=== PATIENT | male | born 1950 | race Caucasian/White ===

== ENCOUNTER 2023-07-17 15:32 | Emergency (ER) | payer MEDICARE ==
[2023-07-17] MEDS ORDERED: Sodium Chloride 0.9% 100 ML IV SCH (16:45)
[2023-07-17] MEDS: Sodium Chloride 0.9% 10 ML Syringe FLUSH PRN (17:00)
[2023-07-17 17:02] LABS: BASOPHILS ABSOLUTE AUTO 0.1 K/mm3 (0.0-0.2); BASOPHILS PERCENT AUTO 0.6 % (0.0-1.0); EOSINOPHILS ABSOLUTE AUTO 0.1 K/mm3 (0.0-0.4); EOSINOPHILS PERCENT AUTO 0.9 % (0.0-6.0); HEMATOCRIT 45.8 % (42.0-52.0); HEMOGLOBIN 15.1 gm/dl (14.0-18.0); IMMATURE GRAN ABSOLUTE AUTO 0.13 K/mm3 (0.00-0.05); LYMPHOCYTES ABSOLUTE AUTO 3.5 K/mm3 (1.0-4.8); LYMPHOCYTES PERCENT AUTO 26.1 % (24.0-44.0); MEAN CORPUSCULAR HEMOGLOBIN 27.7 pg (28.0-32.0); MEAN CORPUSCULAR VOLUME 83.9 fl (83.0-99.0); MEAN PLATELET VOLUME 11.3 fl (9.4-12.4); MONOCYTES ABSOLUTE AUTO 0.9 K/mm3 (0.0-0.8); MONOCYTES PERCENT AUTO 6.7 % (0.0-8.0); NEUTROPHILS ABSOLUTE AUTO 8.7 K/mm3 (1.8-7.7); NEUTROPHILS PERCENT AUTO 64.7 % (41.0-71.0); PLATELET COUNT,PLT 198 K/mm3 (150-400); RED BLOOD CELL COUNT 5.46 M/mm3 (4.52-5.90); WHITE BLOOD CELL COUNT,WBC 13.47 K/mm3 (3.9-11.3)
[2023-07-17 17:18] LABS: A/G RATIO 1.1 (1-2); ALBUMIN 3.2 g/dl (3.4-5.0); ANION GAP 13.8 (5-15); BUN/CREATININE RATIO 21.8 (14-18); C-REACTIVE PROTEIN 0.6 mg/dL (<0.30); CREATININE 1.7 mg/dL (0.7-1.3); EST CRCL DRUG DOSING (CG) 39.36 mL/min; MAGNESIUM 1.5 mg/dL (1.8-2.4); PROTEIN TOTAL,TP 6.2 g/dl (6.4-8.2)
[2023-07-17 17:24] LABS: POTASSIUM,K 3.8 mEq/L (3.5-5.1)
[2023-07-17 17:54] LABS: HEMOGLOBIN A1C 11.6 %
[2023-07-17] MEDS: Iopamidol 755 Mg/ML 100 ML Bottle IVPUSH ONE (18:42)
[2023-07-17] MEDS: Insulin Lispro 100 Unit/ML 3 ML KwikPen SUBCUT ONE (19:13)
[2023-07-17] MEDS ORDERED: Sodium Chloride 0.9% 1,000 ML IV ONE (19:18)
[2023-07-17] MEDS: Sodium Chloride 0.9% 500 ML IV ONE (19:36)
[2023-07-17 20:24] LABS: APPEARANCE,URINE CLEAR (Clear); BILIRUBIN,URINE NEGATIVE (Negative); COLOR,URINE LIGHT YELLOW (Yellow); GLUCOSE,URINE 2+ (Negative); KETONES,URINE NEGATIVE (Negative); LEUKOCYTE ESTERASE,URINE NEGATIVE (Negative); NITRITE,URINE NEGATIVE (Negative); OCCULT BLOOD,URINE NEGATIVE (Negative); PROTEIN,URINE NEGATIVE (Negative); UROBILINOGEN,URINE 0.2 (0.2-1.0)
[2023-07-17] MEDS: Albuterol/Ipratropium 3.0-0.5 MG/3 ML Neb Soln NEB SCH (20:28)
[2023-07-17 20:47] LABS: BACTERIA,URINE FEW /hpf (FEW); MUCUS,URINE FEW /hpf (FEW); RBC,URINE 0-5 /hpf (0-5); SQUAMOUS EPITHELIAL CELLS,UR 0-5 /hpf (0-5); WBC,URINE 0-5 /hpf (0-5)
[2023-07-17] MEDS ORDERED: Acetaminophen/HYDROcodone 325-5 MG Tab PO ONE (21:04)
== END 2023-07-17 21:30 | disposition home or self-care (01) ==
LOC: JD.ED 15:32
DX: M16.11 Unilateral primary osteoarthritis, right hip (principal); R73.9 Hyperglycemia, unspecified; E04.1 Nontoxic single thyroid nodule; R06.2 Wheezing; F17.210 Nicotine dependence, cigarettes, uncomplicated; Z79.899 Other long term (current) drug therapy
CPT/HCPCS: 36415; 70496; 70498; 71250; 73502; 80053; 81001; 82947; 83036; 83735; 85025; 86140; 94640; 96360; 99285; J1815; J3490; J7030; Q9967; J7620-GY

== ENCOUNTER 2023-09-06 10:14 | Inpatient (IN) | payer MEDICARE ==
[2023-09-06 10:52] LABS: BASE EXCESS ARTERIAL -0.4 (-2-2.0); BICARBONATE,ARTERIAL 25.9 meq/L (22.0-26.0); O2 SATURATION ARTERIAL 91.6 % (96.0-97.0); PCO2 ARTERIAL 50.7 mmHg (35.0-45.0)
[2023-09-06] MEDS: Albuterol/Ipratropium 3.0-0.5 MG/3 ML Neb Soln NEB ONE (11:05)
[2023-09-06 11:12] LABS: BASOPHILS ABSOLUTE AUTO 0.1 K/mm3 (0.0-0.2); BASOPHILS PERCENT AUTO 0.2 % (0.0-1.0); EOSINOPHILS PERCENT AUTO 0.1 % (0.0-6.0); HEMATOCRIT 47.4 % (42.0-52.0); HEMOGLOBIN 15.8 gm/dl (14.0-18.0); IMMATURE GRAN ABSOLUTE AUTO 0.58 K/mm3 (0.00-0.05); IMMATURE GRAN PERCENT AUTO 2.1 % (0.0-0.4); LYMPHOCYTES ABSOLUTE AUTO 1.4 K/mm3 (1.0-4.8); MEAN CORPUSCULAR HGB CONC 33.3 g/dl (32.0-36.0); MEAN PLATELET VOLUME 11.6 fl (9.4-12.4); MONOCYTES ABSOLUTE AUTO 1.5 K/mm3 (0.0-0.8); MONOCYTES PERCENT AUTO 5.3 % (0.0-8.0); NEUTROPHILS ABSOLUTE AUTO 24.5 K/mm3 (1.8-7.7); NEUTROPHILS PERCENT AUTO 87.3 % (41.0-71.0); PLATELET COUNT,PLT 163 K/mm3 (150-400); RED BLOOD CELL COUNT 5.64 M/mm3 (4.52-5.90); WHITE BLOOD CELL COUNT,WBC 28.01 K/mm3 (3.9-11.3)
[2023-09-06] MEDS: Sodium Chloride 0.9% 10 ML Syringe FLUSH PRN (11:12)
[2023-09-06 11:35] LABS: A/G RATIO 1.2 (1-2); ALBUMIN 3.3 g/dl (3.4-5.0); ANION GAP 14.5 (5-15); BILIRUBIN TOTAL 0.9 mg/dL (0.2-1.0); BUN/CREATININE RATIO 19.3 (14-18); C-REACTIVE PROTEIN 0.32 mg/dL (<0.30); CREATININE 4.3 mg/dL (0.7-1.3); EST CRCL DRUG DOSING (CG) 14.58 mL/min; PROTEIN TOTAL,TP 6.1 g/dl (6.4-8.2)
[2023-09-06 11:38] LABS: POTASSIUM,K 4.5 mEq/L (3.5-5.1)
[2023-09-06 11:46] LABS: SLIDE REVIEW ABNORMAL SMEAR
[2023-09-06] MEDS: Sodium Chloride 0.9% 1,000 ML IV STA ×2 (12:03→13:55)
[2023-09-06] MEDS ORDERED: Sodium Chloride 0.9% 500 ML IV STA (12:19)
[2023-09-06 12:30] LABS: HEMOGLOBIN A1C 11.3 %
[2023-09-06 12:39] LABS: LACTIC ACID 2.2 mmol/L (0.4-2.0)
[2023-09-06 13:58] LABS: APPEARANCE,URINE CLEAR (Clear); BILIRUBIN,URINE NEGATIVE (Negative); COLOR,URINE YELLOW (Yellow); GLUCOSE,URINE 2+ (Negative); KETONES,URINE NEGATIVE (Negative); LEUKOCYTE ESTERASE,URINE NEGATIVE (Negative); NITRITE,URINE NEGATIVE (Negative); OCCULT BLOOD,URINE 2+ (Negative); PH,URINE 5.5 (5.0-8.0); PROTEIN,URINE NEGATIVE (Negative); UROBILINOGEN,URINE 0.2 (0.2-1.0)
[2023-09-06] MEDS: Piperacillin/Tazobactam 4.5 GM in Sodium Chloride 0.9% 100 ML IV ONE (13:58)
[2023-09-06 14:14] LABS: BACTERIA,URINE FEW /hpf (FEW); MUCUS,URINE NOT SEEN /hpf (FEW); RBC,URINE 40-50 /hpf (0-5); SQUAMOUS EPITHELIAL CELLS,UR 0-5 /hpf (0-5); WBC,URINE 0-5 /hpf (0-5)
[2023-09-06 14:15] LABS: ANION GAP 12.2 (5-15); CALCIUM 8.9 mg/dL (8.5-10.1); CREATININE 4.1 mg/dL (0.7-1.3); EST CRCL DRUG DOSING (CG) 15.29 mL/min; POTASSIUM,K 4.2 mEq/L (3.5-5.1)
[2023-09-06] MEDS ORDERED: Polyethylene Glycol 3350 Powder 17 GM Packet PO PRN (14:29)
[2023-09-06] MEDS ORDERED: Albuterol/Ipratropium 3.0-0.5 MG/3 ML Neb Soln NEB PRN (14:29)
[2023-09-06] MEDS ORDERED: Docusate Sodium 100 MG Cap PO PRN (14:29)
[2023-09-06 15:27] LABS: BENZODIAZEPINES SCREEN,URINE PRESUMPTIVE POSITIVE (CUTOFF=150); OXYCODONE SCREEN,URINE PRESUMPTIVE POSITIVE (CUT0FF=100)
[2023-09-06 15:28] LABS: AMPHETAMINES SCREEN, URINE NEGATIVE (CUTOFF=500); BARBITURATE SCREEN,URINE NEGATIVE (CUTOFF=200); BUPRENORPHINE SCREEN,URINE NEGATIVE (CUTOFF=10); METHADONE SCREEN, URINE NEGATIVE (CUT0FF=200); METHAMPHETAMINES SCREEN, URINE NEGATIVE (CUTOFF=500); THC SCREEN,URINE 20 NG/ML NEGATIVE (CUTOFF=50)
[2023-09-06] MEDS: Calcium Carbonate 500 MG Tab.Chew PO ONE (15:57)
[2023-09-06] MEDS: Heparin Sodium 5,000 Units/ML Vial SUBCUT SCH (15:57)
[2023-09-06] MEDS: Nicotine 21 MG/24 Hr Patch TRDERM SCH (15:57)
[2023-09-06] MEDS: Sodium Chloride 0.9% 1,000 ML IV SCH (16:16)
[2023-09-06] MEDS ORDERED: Insulin Lispro 100 Unit/ML 3 ML KwikPen SUBCUT SCH (17:30)
[2023-09-06] MEDS: Insulin Lispro 100 Unit/ML 3 ML KwikPen SUBCUT SCH (17:33)
[2023-09-06] MEDS: Pantoprazole 40 MG Tab.CR PO SCH (17:54)
[2023-09-06] MEDS: Calcium Carbonate 500 MG Tab.Chew PO PRN (17:54)
[2023-09-06] MEDS: Acetaminophen 325 MG Tab PO PRN (20:06)
[2023-09-06] MEDS: Fluticasone NASAL Spray 16 GM Bottle NAS SCH (22:46)
[2023-09-07] MEDS: Piperacillin/Tazobactam 4.5 GM in Sodium Chloride 0.9% 100 ML IV SCH ×2 (02:28→10:56)
[2023-09-07] MEDS: Sodium Chloride 0.9% 500 ML IV ONE (03:14)
[2023-09-07 05:48] LABS: BASOPHILS ABSOLUTE AUTO 0.1 K/mm3 (0.0-0.2); BASOPHILS PERCENT AUTO 0.3 % (0.0-1.0); EOSINOPHILS ABSOLUTE AUTO 0.1 K/mm3 (0.0-0.4); EOSINOPHILS PERCENT AUTO 0.5 % (0.0-6.0); HEMATOCRIT 44.1 % (42.0-52.0); HEMOGLOBIN 14.6 gm/dl (14.0-18.0); IMMATURE GRAN PERCENT AUTO 2.2 % (0.0-0.4); LYMPHOCYTES ABSOLUTE AUTO 2.3 K/mm3 (1.0-4.8); LYMPHOCYTES PERCENT AUTO 10.2 % (24.0-44.0); MEAN CORPUSCULAR HEMOGLOBIN 27.7 pg (28.0-32.0); MEAN CORPUSCULAR HGB CONC 33.1 g/dl (32.0-36.0); MEAN CORPUSCULAR VOLUME 83.7 fl (83.0-99.0); MEAN PLATELET VOLUME 11.4 fl (9.4-12.4); MONOCYTES ABSOLUTE AUTO 1.2 K/mm3 (0.0-0.8); MONOCYTES PERCENT AUTO 5.1 % (0.0-8.0); NEUTROPHILS ABSOLUTE AUTO 18.4 K/mm3 (1.8-7.7); NEUTROPHILS PERCENT AUTO 81.7 % (41.0-71.0); PLATELET COUNT,PLT 124 K/mm3 (150-400); RED BLOOD CELL COUNT 5.27 M/mm3 (4.52-5.90); WHITE BLOOD CELL COUNT,WBC 22.59 K/mm3 (3.9-11.3)
[2023-09-07 05:50] LABS: A/G RATIO 1.1 (1-2); ALBUMIN 2.8 g/dl (3.4-5.0); ANION GAP 13.7 (5-15); BILIRUBIN TOTAL 0.9 mg/dL (0.2-1.0); BUN/CREATININE RATIO 26.4 (14-18); C-REACTIVE PROTEIN 0.32 mg/dL (<0.30); CALCIUM 8.7 mg/dL (8.5-10.1); EST CRCL DRUG DOSING (CG) 25.92 mL/min; MAGNESIUM 1.7 mg/dL (1.8-2.4); POTASSIUM,K 3.7 mEq/L (3.5-5.1); PROTEIN TOTAL,TP 5.4 g/dl (6.4-8.2)
[2023-09-07 06:07] LABS: CREATININE 2.5 mg/dL (0.7-1.3)
[2023-09-07] MEDS: Insulin Glargine,Human Rec. Analog 100 Units/ML 3 ML Pen SUBCUT SCH ×2 (08:37→08:40)
[2023-09-07] MEDS: Clopidogrel 75 MG Tab PO SCH (08:38)
[2023-09-07] MEDS: methylPREDNISolone Sodium Succinate 125 MG/2 ML SDV IVPUSH ONE (08:38)
[2023-09-07] MEDS: Albuterol/Ipratropium 3.0-0.5 MG/3 ML Neb Soln NEB SCH (08:43)
[2023-09-07] MEDS ORDERED: Insulin Glargine,Human Rec. Analog 100 Units/ML 3 ML Pen SUBCUT SCH (09:00)
[2023-09-07] MEDS ORDERED: Citalopram 20 MG Tab PO SCH (09:00)
[2023-09-07] MEDS: Magnesium Sulfate/Water 2 GM in Premix Bag 1 BAG IV ONE (10:51)
[2023-09-07] MEDS: oxyCODONE 5 MG Tab PO PRN (11:18)
[2023-09-07] MEDS: Citalopram 20 MG Tab PO SCH (13:30)
[2023-09-07] MEDS ORDERED: Insulin Glargine,Human Rec. Analog 100 Units/ML 3 ML Pen SUBCUT ONE (14:33)
[2023-09-08] MEDS: Ondansetron 4 MG/2 ML SDV IV PRN (05:16)
[2023-09-08 05:40] LABS: ALBUMIN 2.8 g/dl (3.4-5.0); ANION GAP 11.7 (5-15); BUN/CREATININE RATIO 29.3 (14-18); C-REACTIVE PROTEIN 0.38 mg/dL (<0.30); CALCIUM 9.4 mg/dL (8.5-10.1); CREATININE 1.5 mg/dL (0.7-1.3); EST CRCL DRUG DOSING (CG) 43.21 mL/min; MAGNESIUM 1.7 mg/dL (1.8-2.4); POTASSIUM,K 3.7 mEq/L (3.5-5.1); PROTEIN TOTAL,TP 5.5 g/dl (6.4-8.2)
[2023-09-08 05:47] LABS: BASOPHILS PERCENT AUTO 0.2 % (0.0-1.0); EOSINOPHILS PERCENT AUTO 0.2 % (0.0-6.0); HEMATOCRIT 44.4 % (42.0-52.0); HEMOGLOBIN 14.8 gm/dl (14.0-18.0); IMMATURE GRAN ABSOLUTE AUTO 0.31 K/mm3 (0.00-0.05); IMMATURE GRAN PERCENT AUTO 1.6 % (0.0-0.4); LYMPHOCYTES ABSOLUTE AUTO 1.5 K/mm3 (1.0-4.8); LYMPHOCYTES PERCENT AUTO 7.9 % (24.0-44.0); MEAN CORPUSCULAR HEMOGLOBIN 27.3 pg (28.0-32.0); MEAN CORPUSCULAR HGB CONC 33.3 g/dl (32.0-36.0); MEAN CORPUSCULAR VOLUME 81.9 fl (83.0-99.0); MEAN PLATELET VOLUME 12.2 fl (9.4-12.4); MONOCYTES ABSOLUTE AUTO 0.9 K/mm3 (0.0-0.8); MONOCYTES PERCENT AUTO 4.9 % (0.0-8.0); NEUTROPHILS ABSOLUTE AUTO 16.1 K/mm3 (1.8-7.7); NEUTROPHILS PERCENT AUTO 85.2 % (41.0-71.0); PLATELET COUNT,PLT 108 K/mm3 (150-400); RED BLOOD CELL COUNT 5.42 M/mm3 (4.52-5.90); WHITE BLOOD CELL COUNT,WBC 18.91 K/mm3 (3.9-11.3)
[2023-09-08] MEDS: predniSONE 20 MG Tab PO ONE (08:58)
[2023-09-08] MEDS: amLODIPine 5 MG Tab PO SCH (08:58)
[2023-09-08] MEDS: Magnesium Sulfate/Water 2 GM in Premix Bag 1 BAG IV ONE (08:59)
[2023-09-08] MEDS: Hyaluronidase, Human Recomb. 150 Unit/ML Vial SUBCUT ONE (09:49)
[2023-09-08] MEDS: Pregabalin 25 MG Cap PO SCH (10:36)
[2023-09-08] MEDS ORDERED: Pregabalin 25 MG Cap PO SCH (21:00)
[2023-09-09] MEDS: predniSONE 20 MG Tab PO SCH (06:13)
[2023-09-09 06:14] LABS: BASOPHILS PERCENT AUTO 0.2 % (0.0-1.0); EOSINOPHILS ABSOLUTE AUTO 0.1 K/mm3 (0.0-0.4); EOSINOPHILS PERCENT AUTO 0.3 % (0.0-6.0); HEMATOCRIT 45.3 % (42.0-52.0); HEMOGLOBIN 14.9 gm/dl (14.0-18.0); IMMATURE GRAN ABSOLUTE AUTO 0.38 K/mm3 (0.00-0.05); IMMATURE GRAN PERCENT AUTO 2.6 % (0.0-0.4); LYMPHOCYTES ABSOLUTE AUTO 2.2 K/mm3 (1.0-4.8); LYMPHOCYTES PERCENT AUTO 15.3 % (24.0-44.0); MEAN CORPUSCULAR HEMOGLOBIN 27.6 pg (28.0-32.0); MEAN CORPUSCULAR HGB CONC 32.9 g/dl (32.0-36.0); MEAN PLATELET VOLUME 12.2 fl (9.4-12.4); MONOCYTES ABSOLUTE AUTO 0.9 K/mm3 (0.0-0.8); NEUTROPHILS PERCENT AUTO 75.6 % (41.0-71.0); PLATELET COUNT,PLT 100 K/mm3 (150-400); RED BLOOD CELL COUNT 5.39 M/mm3 (4.52-5.90); WHITE BLOOD CELL COUNT,WBC 14.59 K/mm3 (3.9-11.3)
[2023-09-09 06:29] LABS: ALBUMIN 2.9 g/dl (3.4-5.0); ANION GAP 13.1 (5-15); BILIRUBIN TOTAL 0.6 mg/dL (0.2-1.0); BUN/CREATININE RATIO 26.4 (14-18); C-REACTIVE PROTEIN 0.32 mg/dL (<0.30); CALCIUM 9.4 mg/dL (8.5-10.1); CREATININE 1.4 mg/dL (0.7-1.3); EST CRCL DRUG DOSING (CG) 46.29 mL/min; MAGNESIUM 1.9 mg/dL (1.8-2.4); PROTEIN TOTAL,TP 5.8 g/dl (6.4-8.2)
[2023-09-09 06:31] LABS: POTASSIUM,K 4.1 mEq/L (3.5-5.1)
[2023-09-09] MEDS: Magnesium Oxide 400 MG Tab PO SCH (08:37)
[2023-09-09] MEDS: Insulin Glargine,Human Rec. Analog 100 Units/ML 3 ML Pen SUBCUT SCH (08:39)
== END 2023-09-09 13:00 | disposition home or self-care (01) | DRG 682 ==
LOC: JD.ED 10:14 → JD.ICU 14:26
PROVIDERS: ADMIT Internal Medicine; ATTEND Internal Medicine
DX: N17.9 Acute kidney failure, unspecified (principal); G93.41 Metabolic encephalopathy; J44.9 Chronic obstructive pulmonary disease, unspecified; F17.210 Nicotine dependence, cigarettes, uncomplicated; J96.01 Acute respiratory failure with hypoxia; E87.20 Acidosis, unspecified; J44.1 Chronic obstructive pulmonary disease with (acute) exacerbation; Z79.899 Other long term (current) drug therapy; Z79.84 Long term (current) use of oral hypoglycemic drugs; Z79.02 Long term (current) use of antithrombotics/antiplatelets; F11.20 Opioid dependence, uncomplicated; Z66 Do not resuscitate; E11.65 Type 2 diabetes mellitus with hyperglycemia; F41.9 Anxiety disorder, unspecified; F32.A Depression, unspecified; G47.33 Obstructive sleep apnea (adult) (pediatric); E86.0 Dehydration; R79.89 Other specified abnormal findings of blood chemistry; Z96.89 Presence of other specified functional implants; F17.200 Nicotine dependence, unspecified, uncomplicated; E83.42 Hypomagnesemia; I10 Essential (primary) hypertension; I25.2 Old myocardial infarction; Z95.1 Presence of aortocoronary bypass graft; Z79.52 Long term (current) use of systemic steroids; Z90.49 Acquired absence of other specified parts of digestive tract
CPT/HCPCS: 36415; 36600; 70450; 71046; 72131; 73502 ×2; 80048; 80053; 80306; 81001; 82570; 82803; 83036; 83605; 83880; 84145; 84300; 84439; 84443; 84484 ×2; 85025; 86140; 87040 ×2; 93005; 94640; 96361; 96365; 99285; J2543; J3490 ×2; J7030 ×2; 76775; 80307; 82947; 83735; 84100; 93010; 93976; 93976-26; 94667; 94668; 94761; 97161-GP; A9270-GY; J1644; J1815; J1815-GY; J2405; J2919; J3475; J7512; J7620-GY

== ENCOUNTER 2023-09-29 11:04 | Emergency (ER) | payer MEDICARE ==
[2023-09-29] MEDS: HYDROmorphone 1 MG/ML Syringe IM ONE (11:55)
== END 2023-09-29 12:07 | disposition home or self-care (01) ==
LOC: JD.ED 11:04
DX: M25.551 Pain in right hip (principal); M54.41 Lumbago with sciatica, right side; G89.29 Other chronic pain; I25.2 Old myocardial infarction; J44.9 Chronic obstructive pulmonary disease, unspecified; E11.9 Type 2 diabetes mellitus without complications; Z95.1 Presence of aortocoronary bypass graft; Z79.02 Long term (current) use of antithrombotics/antiplatelets; Z79.4 Long term (current) use of insulin; Z79.899 Other long term (current) drug therapy
CPT/HCPCS: 96372; 99283; J1170

== ENCOUNTER 2024-02-11 10:40 | Emergency (ER) | payer MEDICARE ==
[2024-02-11 12:52] LABS: BASOPHILS PERCENT AUTO 0.2 % (0.0-1.0); EOSINOPHILS ABSOLUTE AUTO 0.2 K/mm3 (0.0-0.4); EOSINOPHILS PERCENT AUTO 0.9 % (0.0-6.0); HEMATOCRIT 45.3 % (42.0-52.0); HEMOGLOBIN 14.5 gm/dl (14.0-18.0); IMMATURE GRAN ABSOLUTE AUTO 0.14 K/mm3 (0.00-0.05); IMMATURE GRAN PERCENT AUTO 0.8 % (0.0-0.4); LYMPHOCYTES ABSOLUTE AUTO 2.3 K/mm3 (1.0-4.8); LYMPHOCYTES PERCENT AUTO 13.4 % (24.0-44.0); MEAN CORPUSCULAR HEMOGLOBIN 27.1 pg (28.0-32.0); MEAN CORPUSCULAR VOLUME 84.5 fl (83.0-99.0); MEAN PLATELET VOLUME 10.8 fl (9.4-12.4); MONOCYTES ABSOLUTE AUTO 0.9 K/mm3 (0.0-0.8); MONOCYTES PERCENT AUTO 5.4 % (0.0-8.0); NEUTROPHILS ABSOLUTE AUTO 13.5 K/mm3 (1.8-7.7); NEUTROPHILS PERCENT AUTO 79.3 % (41.0-71.0); PLATELET COUNT,PLT 155 K/mm3 (150-400); RED BLOOD CELL COUNT 5.36 M/mm3 (4.52-5.90)
[2024-02-11 13:21] LABS: LACTIC ACID 1.2 mmol/L (0.4-2.0)
[2024-02-11 13:27] LABS: ALBUMIN 2.9 g/dl (3.4-5.0); ANION GAP 12.2 (5-15); BILIRUBIN TOTAL 1.1 mg/dL (0.2-1.0); C-REACTIVE PROTEIN 1.73 mg/dL (<0.30); CALCIUM 9.4 mg/dL (8.5-10.1); EST CRCL DRUG DOSING (CG) 65.9 mL/min; POTASSIUM,K 3.2 mEq/L (3.5-5.1); PROTEIN TOTAL,TP 5.8 g/dl (6.4-8.2)
[2024-02-11] MEDS: cefTRIAXone 2 GM, Lidocaine 1% 4.2 ML IM ONE (14:21)
[2024-02-11] MEDS: Potassium Chloride 20 MEQ Tab.ER PO ONE (14:23)
[2024-02-11] MEDS: oxyCODONE 5 MG Tab PO ONE (14:23)
[2024-02-11] MEDS: Furosemide 20 MG Tab PO ONE (14:23)
== END 2024-02-11 16:15 | disposition home or self-care (01) ==
LOC: JD.ED 10:40
DX: L03.116 Cellulitis of left lower limb (principal); I50.9 Heart failure, unspecified; E11.69 Type 2 diabetes mellitus with other specified complication; I25.2 Old myocardial infarction; J44.9 Chronic obstructive pulmonary disease, unspecified; K21.9 Gastro-esophageal reflux disease without esophagitis; F17.210 Nicotine dependence, cigarettes, uncomplicated; Z90.49 Acquired absence of other specified parts of digestive tract; Z79.51 Long term (current) use of inhaled steroids; Z79.4 Long term (current) use of insulin; Z79.52 Long term (current) use of systemic steroids; Z79.899 Other long term (current) drug therapy
CPT/HCPCS: 36415; 73630; 80053; 83605; 83880; 85025; 86140; 93971; 96372; 99285; A9270; J0696; J3490

== ENCOUNTER 2024-02-14 10:59 | Inpatient (IN) | payer MEDICARE, MEDICAID ==
[2024-02-14 11:53] LABS: BASOPHILS ABSOLUTE AUTO 0.1 K/mm3 (0.0-0.2); BASOPHILS PERCENT AUTO 0.3 % (0.0-1.0); HEMOGLOBIN 15.7 gm/dl (14.0-18.0); IMMATURE GRAN PERCENT AUTO 1.4 % (0.0-0.4); LYMPHOCYTES ABSOLUTE AUTO 0.6 K/mm3 (1.0-4.8); LYMPHOCYTES PERCENT AUTO 2.9 % (24.0-44.0); MEAN CORPUSCULAR HEMOGLOBIN 27.4 pg (28.0-32.0); MEAN CORPUSCULAR HGB CONC 32.7 g/dl (32.0-36.0); MEAN CORPUSCULAR VOLUME 83.6 fl (83.0-99.0); MEAN PLATELET VOLUME 10.9 fl (9.4-12.4); MONOCYTES ABSOLUTE AUTO 0.5 K/mm3 (0.0-0.8); MONOCYTES PERCENT AUTO 2.3 % (0.0-8.0); NEUTROPHILS ABSOLUTE AUTO 19.2 K/mm3 (1.8-7.7); NEUTROPHILS PERCENT AUTO 93.1 % (41.0-71.0); PLATELET COUNT,PLT 190 K/mm3 (150-400); RED BLOOD CELL COUNT 5.74 M/mm3 (4.52-5.90); WHITE BLOOD CELL COUNT,WBC 20.69 K/mm3 (3.9-11.3)
[2024-02-14] MEDS ORDERED: Sodium Chloride 0.9% 10 ML Syringe FLUSH PRN (11:58)
[2024-02-14] MEDS: Piperacillin/Tazobactam 4.5 GM in Sodium Chloride 0.9% 100 ML IV STA (12:13)
[2024-02-14 12:17] LABS: PROTHROMBIN TIME 10.6 SECONDS (9.7-12.0)
[2024-02-14 12:22] LABS: SLIDE REVIEW ABNORMAL SMEAR
[2024-02-14 12:23] LABS: LACTIC ACID 1.6 mmol/L (0.4-2.0)
[2024-02-14 12:38] LABS: A/G RATIO 0.8 (1-2); ANION GAP 16.9 (5-15); BILIRUBIN TOTAL 1.1 mg/dL (0.2-1.0); BUN/CREATININE RATIO 17.5 (14-18); CREATININE 1.6 mg/dL (0.7-1.3); EST CRCL DRUG DOSING (CG) 41.19 mL/min; POTASSIUM,K 3.9 mEq/L (3.5-5.1); PROTEIN TOTAL,TP 6.8 g/dl (6.4-8.2)
[2024-02-14] MEDS: Albuterol/Ipratropium 3.0-0.5 MG/3 ML Neb Soln NEB ONE (13:04)
[2024-02-14] MEDS: Sodium Chloride 0.9% 2,000 ML IV ONE (13:17)
[2024-02-14] MEDS: oxyCODONE 5 MG Tab PO ONE (13:18)
[2024-02-14 14:03] LABS: APPEARANCE,URINE CLEAR (Clear); BILIRUBIN,URINE 1+ (Negative); COLOR,URINE YELLOW (Yellow); GLUCOSE,URINE 2+ (Negative); KETONES,URINE TRACE (Negative); LEUKOCYTE ESTERASE,URINE NEGATIVE (Negative); NITRITE,URINE NEGATIVE (Negative); OCCULT BLOOD,URINE NEGATIVE (Negative); PROTEIN,URINE TRACE (Negative); UROBILINOGEN,URINE 0.2 (0.2-1.0)
[2024-02-14 14:08] LABS: BACTERIA,URINE RARE /hpf (FEW); EPITHELIAL CELLS,URINE 0-5 /hpf (0-5); MUCUS,URINE FEW /hpf (FEW); RBC,URINE 0-5 /hpf (0-5); WBC,URINE 0-5 /hpf (0-5)
[2024-02-14] MEDS ORDERED: Polyethylene Glycol 3350 Powder 17 GM Packet PO PRN (14:19)
[2024-02-14] MEDS ORDERED: oxyCODONE 5 MG Tab PO PRN (14:19)
[2024-02-14] MEDS ORDERED: Docusate Sodium 100 MG Cap PO PRN (14:19)
[2024-02-14] MEDS ORDERED: Albuterol/Ipratropium 3.0-0.5 MG/3 ML Neb Soln NEB PRN (14:19)
[2024-02-14] MEDS ORDERED: Ondansetron 4 MG/2 ML SDV IV PRN (14:19)
[2024-02-14] MEDS ORDERED: Albuterol 0.083% 2.5 MG/3 ML Neb Soln NEB PRN (14:19)
[2024-02-14] MEDS ORDERED: OXYCODONE MYRISTATE 18 MG PO SCH (14:30)
[2024-02-14 14:56] LABS: HEMOGLOBIN A1C 10.4 %
[2024-02-14] MEDS: Enoxaparin 40 MG/0.4 ML Syringe SUBCUT SCH (15:45)
[2024-02-14] MEDS: Cefepime 2 GM in Sodium Chloride 0.9% 100 ML IV SCH (15:46)
[2024-02-14] MEDS: Methocarbamol 500 MG Tab PO SCH (15:46)
[2024-02-14] MEDS: Nicotine 14 MG/24 Hr Patch TRDERM SCH (15:56)
[2024-02-14] MEDS: Albuterol/Ipratropium 3.0-0.5 MG/3 ML Neb Soln NEB SCH (16:49)
[2024-02-14] MEDS: oxyCODONE 5 MG Tab PO SCH (16:58)
[2024-02-14] MEDS: VANCOmycin 1.5 GM/300 ML 1.5 GM in Premix Bag 1 BAG IV ONE (16:59)
[2024-02-14] MEDS: Insulin Lispro 100 Unit/ML 3 ML KwikPen SUBCUT SCH (18:14)
[2024-02-14] MEDS: Fluticasone NASAL Spray 16 GM Bottle NASBOTH SCH (20:26)
[2024-02-14] MEDS: Pregabalin 25 MG Cap PO SCH (20:27)
[2024-02-14] MEDS: Insulin Glargine,Human Rec. Analog 100 Units/ML 3 ML Pen SUBCUT SCH (20:27)
[2024-02-15] MEDS: hydrOXYzine HCl 50 MG Tab PO PRN (00:12)
[2024-02-15] MEDS: oxyCODONE ER 20 MG TAB.ER PO SCH (01:29)
[2024-02-15 04:49] LABS: BASOPHILS PERCENT AUTO 0.3 % (0.0-1.0); EOSINOPHILS ABSOLUTE AUTO 0.1 K/mm3 (0.0-0.4); EOSINOPHILS PERCENT AUTO 0.9 % (0.0-6.0); HEMATOCRIT 41.5 % (42.0-52.0); HEMOGLOBIN 13.3 gm/dl (14.0-18.0); IMMATURE GRAN ABSOLUTE AUTO 0.14 K/mm3 (0.00-0.05); LYMPHOCYTES ABSOLUTE AUTO 2.1 K/mm3 (1.0-4.8); LYMPHOCYTES PERCENT AUTO 15.5 % (24.0-44.0); MEAN CORPUSCULAR HEMOGLOBIN 27.1 pg (28.0-32.0); MEAN CORPUSCULAR VOLUME 84.5 fl (83.0-99.0); MEAN PLATELET VOLUME 11.2 fl (9.4-12.4); MONOCYTES ABSOLUTE AUTO 0.9 K/mm3 (0.0-0.8); MONOCYTES PERCENT AUTO 6.5 % (0.0-8.0); NEUTROPHILS ABSOLUTE AUTO 10.3 K/mm3 (1.8-7.7); NEUTROPHILS PERCENT AUTO 75.8 % (41.0-71.0); PLATELET COUNT,PLT 165 K/mm3 (150-400); RED BLOOD CELL COUNT 4.91 M/mm3 (4.52-5.90); WHITE BLOOD CELL COUNT,WBC 13.63 K/mm3 (3.9-11.3)
[2024-02-15 05:26] LABS: A/G RATIO 0.7 (1-2); ALBUMIN 2.4 g/dl (3.4-5.0); ANION GAP 14.4 (5-15); BILIRUBIN TOTAL 0.5 mg/dL (0.2-1.0); BUN/CREATININE RATIO 17.6 (14-18); C-REACTIVE PROTEIN 3.75 mg/dL (<0.30); CALCIUM 9.2 mg/dL (8.5-10.1); CREATININE 1.7 mg/dL (0.7-1.3); EST CRCL DRUG DOSING (CG) 38.77 mL/min; MAGNESIUM 1.8 mg/dL (1.8-2.4); POTASSIUM,K 3.4 mEq/L (3.5-5.1); PROTEIN TOTAL,TP 5.8 g/dl (6.4-8.2); VANCOMYCIN RANDOM 9.1 ug/mL
[2024-02-15] MEDS: predniSONE 20 MG Tab PO SCH (06:57)
[2024-02-15] MEDS ORDERED: predniSONE 10 MG Tab PO SCH (07:00)
[2024-02-15] MEDS: Pantoprazole 40 MG Tab.CR PO SCH (08:10)
[2024-02-15] MEDS: Citalopram 20 MG Tab PO SCH (08:10)
[2024-02-15] MEDS: Furosemide 40 MG Tab PO SCH (08:10)
[2024-02-15] MEDS: Clopidogrel 75 MG Tab PO SCH (08:11)
[2024-02-15] MEDS: amLODIPine 5 MG Tab PO SCH (08:11)
[2024-02-15] MEDS: Potassium Chloride 20 MEQ Tab.ER PO ONE ×2 (08:20→20:21)
[2024-02-15] MEDS: Sodium Chloride 0.9% 1,000 ML IV SCH (08:45)
[2024-02-15] MEDS: Acetaminophen 325 MG Tab PO PRN (09:39)
[2024-02-15] MEDS: Lidocaine 4% 1 each Patch TOP SCH (11:35)
[2024-02-15] MEDS: Magnesium Sulfate/Water Premix 2 GM in Premix Bag 1 BAG IV ONE (14:09)
[2024-02-15] MEDS: VANCOmycin 1.25 GM/250 ML 1.25 GM in Premix Bag 1 BAG IV SCH (17:29)
[2024-02-15] MEDS: Cefepime 2 GM in Sodium Chloride 0.9% 100 ML IV SCH (19:57)
[2024-02-15] MEDS: Insulin Glargine,Human Rec. Analog 100 Units/ML 3 ML Pen SUBCUT SCH (20:24)
[2024-02-16 04:44] LABS: BASOPHILS PERCENT AUTO 0.3 % (0.0-1.0); EOSINOPHILS ABSOLUTE AUTO 0.2 K/mm3 (0.0-0.4); EOSINOPHILS PERCENT AUTO 1.5 % (0.0-6.0); HEMATOCRIT 40.3 % (42.0-52.0); HEMOGLOBIN 12.8 gm/dl (14.0-18.0); IMMATURE GRAN ABSOLUTE AUTO 0.11 K/mm3 (0.00-0.05); IMMATURE GRAN PERCENT AUTO 0.9 % (0.0-0.4); LYMPHOCYTES PERCENT AUTO 16.9 % (24.0-44.0); MEAN CORPUSCULAR HGB CONC 31.8 g/dl (32.0-36.0); MONOCYTES ABSOLUTE AUTO 0.8 K/mm3 (0.0-0.8); MONOCYTES PERCENT AUTO 6.5 % (0.0-8.0); NEUTROPHILS ABSOLUTE AUTO 8.6 K/mm3 (1.8-7.7); NEUTROPHILS PERCENT AUTO 73.9 % (41.0-71.0); PLATELET COUNT,PLT 159 K/mm3 (150-400); RED BLOOD CELL COUNT 4.74 M/mm3 (4.52-5.90); WHITE BLOOD CELL COUNT,WBC 11.63 K/mm3 (3.9-11.3)
[2024-02-16 05:20] LABS: A/G RATIO 0.7 (1-2); ALBUMIN 2.3 g/dl (3.4-5.0); ANION GAP 13.4 (5-15); BILIRUBIN TOTAL 0.6 mg/dL (0.2-1.0); BUN/CREATININE RATIO 22.7 (14-18); C-REACTIVE PROTEIN 1.76 mg/dL (<0.30); CALCIUM 9.2 mg/dL (8.5-10.1); CREATININE 1.1 mg/dL (0.7-1.3); EST CRCL DRUG DOSING (CG) 59.91 mL/min; MAGNESIUM 2.1 mg/dL (1.8-2.4); POTASSIUM,K 4.4 mEq/L (3.5-5.1); PROTEIN TOTAL,TP 5.6 g/dl (6.4-8.2)
[2024-02-16] MEDS: VANCOmycin 1 GM in Sodium Chloride 0.9% 250 ML IV SCH (09:11)
[2024-02-16] MEDS: Insulin Glargine,Human Rec. Analog 100 Units/ML 3 ML Pen SUBCUT SCH (09:12)
[2024-02-16] MEDS: HYDROmorphone 0.5 MG/0.5 ML Syringe IVPUSH ONE (09:43)
[2024-02-16] MEDS: Cefepime 2 GM in Sodium Chloride 0.9% 100 ML IV SCH (15:01)
[2024-02-17 04:41] LABS: BASOPHILS ABSOLUTE AUTO 0.1 K/mm3 (0.0-0.2); BASOPHILS PERCENT AUTO 0.5 % (0.0-1.0); EOSINOPHILS ABSOLUTE AUTO 0.2 K/mm3 (0.0-0.4); EOSINOPHILS PERCENT AUTO 1.5 % (0.0-6.0); HEMOGLOBIN 13.2 gm/dl (14.0-18.0); IMMATURE GRAN ABSOLUTE AUTO 0.11 K/mm3 (0.00-0.05); IMMATURE GRAN PERCENT AUTO 1.1 % (0.0-0.4); LYMPHOCYTES ABSOLUTE AUTO 2.3 K/mm3 (1.0-4.8); LYMPHOCYTES PERCENT AUTO 22.5 % (24.0-44.0); MEAN CORPUSCULAR HEMOGLOBIN 27.2 pg (28.0-32.0); MEAN CORPUSCULAR HGB CONC 32.2 g/dl (32.0-36.0); MEAN CORPUSCULAR VOLUME 84.5 fl (83.0-99.0); MEAN PLATELET VOLUME 10.9 fl (9.4-12.4); MONOCYTES ABSOLUTE AUTO 0.7 K/mm3 (0.0-0.8); MONOCYTES PERCENT AUTO 7.1 % (0.0-8.0); NEUTROPHILS ABSOLUTE AUTO 6.9 K/mm3 (1.8-7.7); NEUTROPHILS PERCENT AUTO 67.3 % (41.0-71.0); PLATELET COUNT,PLT 162 K/mm3 (150-400); RED BLOOD CELL COUNT 4.85 M/mm3 (4.52-5.90); WHITE BLOOD CELL COUNT,WBC 10.29 K/mm3 (3.9-11.3)
[2024-02-17 05:27] LABS: A/G RATIO 0.7 (1-2); ALBUMIN 2.5 g/dl (3.4-5.0); ANION GAP 11.9 (5-15); BILIRUBIN TOTAL 0.6 mg/dL (0.2-1.0); C-REACTIVE PROTEIN 1.12 mg/dL (<0.30); CALCIUM 9.4 mg/dL (8.5-10.1); EST CRCL DRUG DOSING (CG) 65.9 mL/min; MAGNESIUM 1.8 mg/dL (1.8-2.4); POTASSIUM,K 3.9 mEq/L (3.5-5.1)
[2024-02-17] MEDS: Insulin Glargine,Human Rec. Analog 100 Units/ML 3 ML Pen SUBCUT SCH (08:11)
[2024-02-17] MEDS ORDERED: Naloxone 0.4 MG/ML SDV IVPUSH PRN (10:19)
[2024-02-17] MEDS: HYDROmorphone 0.5 MG/0.5 ML Syringe IVPUSH ONE (10:30)
[2024-02-17] MEDS ORDERED: Sodium Chloride 0.9% 100 ML IV SCH ×2 (11:00→12:15)
[2024-02-17] MEDS: Iopamidol 755 Mg/ML 100 ML Bottle IVPUSH ONE ×2 (12:11→13:17)
[2024-02-17] MEDS: Sodium Chloride 0.9% 10 ML Syringe FLUSH ONE (13:17)
[2024-02-17] MEDS: HYDROmorphone 0.5 MG/0.5 ML Syringe IVPUSH PRN (20:22)
[2024-02-18 05:31] LABS: BASOPHILS ABSOLUTE AUTO 0.1 K/mm3 (0.0-0.2); BASOPHILS PERCENT AUTO 0.6 % (0.0-1.0); EOSINOPHILS ABSOLUTE AUTO 0.1 K/mm3 (0.0-0.4); EOSINOPHILS PERCENT AUTO 1.3 % (0.0-6.0); HEMATOCRIT 40.6 % (42.0-52.0); HEMOGLOBIN 13.3 gm/dl (14.0-18.0); IMMATURE GRAN ABSOLUTE AUTO 0.16 K/mm3 (0.00-0.05); IMMATURE GRAN PERCENT AUTO 1.4 % (0.0-0.4); LYMPHOCYTES ABSOLUTE AUTO 2.5 K/mm3 (1.0-4.8); LYMPHOCYTES PERCENT AUTO 22.4 % (24.0-44.0); MEAN CORPUSCULAR HEMOGLOBIN 27.1 pg (28.0-32.0); MEAN CORPUSCULAR HGB CONC 32.8 g/dl (32.0-36.0); MEAN CORPUSCULAR VOLUME 82.7 fl (83.0-99.0); MONOCYTES ABSOLUTE AUTO 0.8 K/mm3 (0.0-0.8); NEUTROPHILS ABSOLUTE AUTO 7.5 K/mm3 (1.8-7.7); NEUTROPHILS PERCENT AUTO 67.3 % (41.0-71.0); PLATELET COUNT,PLT 182 K/mm3 (150-400); RED BLOOD CELL COUNT 4.91 M/mm3 (4.52-5.90)
[2024-02-18 05:54] LABS: A/G RATIO 0.7 (1-2); ALBUMIN 2.4 g/dl (3.4-5.0); ANION GAP 9.7 (5-15); BILIRUBIN TOTAL 0.4 mg/dL (0.2-1.0); BUN/CREATININE RATIO 20.9 (14-18); C-REACTIVE PROTEIN 0.65 mg/dL (<0.30); CALCIUM 9.3 mg/dL (8.5-10.1); CREATININE 1.1 mg/dL (0.7-1.3); EST CRCL DRUG DOSING (CG) 59.91 mL/min; MAGNESIUM 1.7 mg/dL (1.8-2.4); POTASSIUM,K 3.7 mEq/L (3.5-5.1); PROTEIN TOTAL,TP 5.8 g/dl (6.4-8.2)
[2024-02-21] MEDS: VANCOmycin 1.25 GM/250 ML 1.25 GM in Premix Bag 1 BAG IV SCH (00:46)
[2024-02-21] MEDS: predniSONE 10 MG Tab PO SCH (06:02)
[2024-02-21] MEDS: Lisinopril 20 MG Tab PO SCH (08:18)
[2024-02-22] MEDS: HYDROmorphone 0.5 MG/0.5 ML Syringe IVPUSH ONE (08:22)
[2024-02-22] MEDS ORDERED: Bumetanide 1 MG/4 ML MDV IVPUSH ONE (09:36)
[2024-02-22] MEDS ORDERED: Insulin Glargine,Human Rec. Analog 100 Units/ML 3 ML Pen SUBCUT SCH (21:00)
== END 2024-02-22 09:39 | DRG 872 ==
LOC: JD.ED 10:59 → JD.MS 14:07 → UNDOADMIN 14:07
PROVIDERS: ADMIT Family Medicine; ATTEND Student in an Organized Health Care Education/Training Program
DX: A41.9 Sepsis, unspecified organism (principal); L03.116 Cellulitis of left lower limb; N17.9 Acute kidney failure, unspecified; D84.821 Immunodeficiency due to drugs; E11.9 Type 2 diabetes mellitus without complications; F11.20 Opioid dependence, uncomplicated; H54.7 Unspecified visual loss; G47.30 Sleep apnea, unspecified; K21.9 Gastro-esophageal reflux disease without esophagitis; F41.9 Anxiety disorder, unspecified; F17.210 Nicotine dependence, cigarettes, uncomplicated; I12.9 Hypertensive chronic kidney disease with stage 1 through stage 4 chronic kidney disease, or unspecified chronic kidney disease; N18.9 Chronic kidney disease, unspecified; E11.22 Type 2 diabetes mellitus with diabetic chronic kidney disease; F31.9 Bipolar disorder, unspecified; F60.3 Borderline personality disorder; M54.41 Lumbago with sciatica, right side; G89.29 Other chronic pain; J43.9 Emphysema, unspecified; E11.65 Type 2 diabetes mellitus with hyperglycemia; M54.42 Lumbago with sciatica, left side; E11.51 Type 2 diabetes mellitus with diabetic peripheral angiopathy without gangrene; Z96.89 Presence of other specified functional implants; R65.20 Severe sepsis without septic shock; M48.00 Spinal stenosis, site unspecified; Z96.82 Presence of neurostimulator; Z79.51 Long term (current) use of inhaled steroids; Z79.02 Long term (current) use of antithrombotics/antiplatelets; Z79.4 Long term (current) use of insulin; Z79.84 Long term (current) use of oral hypoglycemic drugs; Z79.899 Other long term (current) drug therapy; I25.2 Old myocardial infarction; Z87.81 Personal history of (healed) traumatic fracture; Z95.1 Presence of aortocoronary bypass graft; Z90.49 Acquired absence of other specified parts of digestive tract; Z79.52 Long term (current) use of systemic steroids
CPT/HCPCS: 36415; 71045; 73590; 73620; 80053; 81001; 83036; 83605; 85025; 85610; 86140; 87040 ×2; 94640; 96365; 99285; A9270; J2543; J3490; J7030; 73701-26-LT; 73701-LT; 80202; 82947; 83735; 93922; 94668; 94761; 97110-GP; 97140-GP; 97161-GP; 97530-GP; 99223; 99232; 99233; 99239; 99284; J0692; J1171; J1650; J1815; J1815-GY; J3372; J3475; J7050; J7512; J7620-GY; Q9967; U0002

== ENCOUNTER 2024-03-30 05:05 | Inpatient (IN) | payer MEDICAID, MEDICARE ==
[2024-03-30] MEDS ORDERED: Sodium Chloride 0.9% 10 ML Syringe FLUSH PRN (05:12)
[2024-03-30] MEDS: Albuterol/Ipratropium 3.0-0.5 MG/3 ML Neb Soln NEB SCH ×2 (05:21→09:29)
[2024-03-30 05:27] LABS: BASOPHILS ABSOLUTE AUTO 0.1 K/mm3 (0.0-0.2); BASOPHILS PERCENT AUTO 0.5 % (0.0-1.0); EOSINOPHILS ABSOLUTE AUTO 0.3 K/mm3 (0.0-0.4); EOSINOPHILS PERCENT AUTO 2.1 % (0.0-6.0); HEMATOCRIT 40.4 % (42.0-52.0); HEMOGLOBIN 12.7 gm/dl (14.0-18.0); IMMATURE GRAN ABSOLUTE AUTO 0.08 K/mm3 (0.00-0.05); IMMATURE GRAN PERCENT AUTO 0.6 % (0.0-0.4); LYMPHOCYTES ABSOLUTE AUTO 1.3 K/mm3 (1.0-4.8); LYMPHOCYTES PERCENT AUTO 9.7 % (24.0-44.0); MEAN CORPUSCULAR HEMOGLOBIN 27.2 pg (28.0-32.0); MEAN CORPUSCULAR HGB CONC 31.4 g/dl (32.0-36.0); MEAN CORPUSCULAR VOLUME 86.5 fl (83.0-99.0); MEAN PLATELET VOLUME 11.3 fl (9.4-12.4); MONOCYTES ABSOLUTE AUTO 1.1 K/mm3 (0.0-0.8); MONOCYTES PERCENT AUTO 8.4 % (0.0-8.0); NEUTROPHILS ABSOLUTE AUTO 10.4 K/mm3 (1.8-7.7); NEUTROPHILS PERCENT AUTO 78.7 % (41.0-71.0); PLATELET COUNT,PLT 150 K/mm3 (150-400); RED BLOOD CELL COUNT 4.67 M/mm3 (4.52-5.90); WHITE BLOOD CELL COUNT,WBC 13.15 K/mm3 (3.9-11.3)
[2024-03-30] MEDS: methylPREDNISolone Sodium Succinate 125 MG/2 ML SDV IVPUSH ONE (05:30)
[2024-03-30 05:54] LABS: A/G RATIO 0.9 (1-2); ALBUMIN 3.1 g/dl (3.4-5.0); ANION GAP 11.9 (5-15); BUN/CREATININE RATIO 13.3 (14-18); CALCIUM 9.2 mg/dL (8.5-10.1); CREATININE 1.2 mg/dL (0.7-1.3); EST CRCL DRUG DOSING (CG) 54.92 mL/min; MAGNESIUM 1.6 mg/dL (1.8-2.4); POTASSIUM,K 3.9 mEq/L (3.5-5.1); PROTEIN TOTAL,TP 6.5 g/dl (6.4-8.2)
[2024-03-30] MEDS: Albuterol/Ipratropium 3.0-0.5 MG/3 ML Neb Soln NEB ONE (07:17)
[2024-03-30] MEDS: oxyCODONE 5 MG Tab PO ONE (08:25)
[2024-03-30] MEDS ORDERED: Albuterol 0.083% 2.5 MG/3 ML Neb Soln NEB PRN (09:01)
[2024-03-30] MEDS ORDERED: Cefepime 2 GM in Sodium Chloride 0.9% 50 ML IV SCH (09:15)
[2024-03-30 09:41] LABS: BASE EXCESS ARTERIAL 2.3 (-2-2.0); BICARBONATE,ARTERIAL 28.3 meq/L (22.0-26.0)
[2024-03-30 09:44] LABS: O2 SATURATION ARTERIAL 94.5 % (96.0-97.0)
[2024-03-30] MEDS: Cefepime 2 GM Vial IV SCH (09:51)
[2024-03-30] MEDS: Clopidogrel 75 MG Tab PO SCH (09:51)
[2024-03-30] MEDS: Gabapentin 300 MG Cap PO SCH (09:51)
[2024-03-30 11:14] LABS: APPEARANCE,URINE CLEAR (Clear); BILIRUBIN,URINE NEGATIVE (Negative); COLOR,URINE YELLOW (Yellow); GLUCOSE,URINE TRACE (Negative); KETONES,URINE 2+ (Negative); LEUKOCYTE ESTERASE,URINE NEGATIVE (Negative); NITRITE,URINE NEGATIVE (Negative); OCCULT BLOOD,URINE NEGATIVE (Negative); PROTEIN,URINE 2+ (Negative); UROBILINOGEN,URINE 0.2 (0.2-1.0)
[2024-03-30 11:35] LABS: BACTERIA,URINE FEW /hpf (FEW); EPITHELIAL CELLS,URINE 0-5 /hpf (0-5); MUCUS,URINE FEW /hpf (FEW); RBC,URINE 0-5 /hpf (0-5); WBC,URINE 0-5 /hpf (0-5)
[2024-03-30] MEDS: Enoxaparin 40 MG/0.4 ML Syringe SUBCUT SCH (12:28)
[2024-03-30] MEDS: oxyCODONE 5 MG Tab PO PRN (13:20)
[2024-03-30] MEDS: Insulin Lispro 100 Unit/ML 3 ML KwikPen SUBCUT SCH (17:18)
[2024-03-30] MEDS: Mirtazapine 15 MG Tab PO SCH ×2 (18:10→21:31)
[2024-03-30] MEDS: Non-Formulary Medication 1 Each (Escitalopram 20 MG Tablet) PO SCH (18:10)
[2024-03-30] MEDS: methylPREDNISolone Sodium Succinate 40 MG/1 ML SDV IVPUSH SCH (21:30)
[2024-03-30] MEDS: Acetaminophen 325 MG Tab PO PRN (21:33)
[2024-03-30] MEDS ORDERED: Diclofenac Sodium 1% Gel 100 GM Tube TOP PRN (21:56)
[2024-03-30] MEDS: Furosemide 40 MG/4 ML VIAL IVPUSH ONE (22:18)
[2024-03-31 05:47] LABS: BASOPHILS PERCENT AUTO 0.1 % (0.0-1.0); HEMATOCRIT 38.9 % (42.0-52.0); HEMOGLOBIN 12.3 gm/dl (14.0-18.0); IMMATURE GRAN ABSOLUTE AUTO 0.07 K/mm3 (0.00-0.05); IMMATURE GRAN PERCENT AUTO 0.6 % (0.0-0.4); LYMPHOCYTES ABSOLUTE AUTO 0.4 K/mm3 (1.0-4.8); LYMPHOCYTES PERCENT AUTO 3.4 % (24.0-44.0); MEAN CORPUSCULAR HEMOGLOBIN 26.8 pg (28.0-32.0); MEAN CORPUSCULAR HGB CONC 31.6 g/dl (32.0-36.0); MEAN CORPUSCULAR VOLUME 84.7 fl (83.0-99.0); MEAN PLATELET VOLUME 11.8 fl (9.4-12.4); MONOCYTES ABSOLUTE AUTO 0.5 K/mm3 (0.0-0.8); MONOCYTES PERCENT AUTO 4.4 % (0.0-8.0); NEUTROPHILS ABSOLUTE AUTO 10.6 K/mm3 (1.8-7.7); NEUTROPHILS PERCENT AUTO 91.5 % (41.0-71.0); PLATELET COUNT,PLT 145 K/mm3 (150-400); RED BLOOD CELL COUNT 4.59 M/mm3 (4.52-5.90); WHITE BLOOD CELL COUNT,WBC 11.56 K/mm3 (3.9-11.3)
[2024-03-31 06:04] LABS: ANION GAP 11.9 (5-15); BUN/CREATININE RATIO 21.1 (14-18); CALCIUM 9.7 mg/dL (8.5-10.1); CREATININE 0.9 mg/dL (0.7-1.3); EST CRCL DRUG DOSING (CG) 73.23 mL/min; MAGNESIUM 1.9 mg/dL (1.8-2.4); POTASSIUM,K 3.9 mEq/L (3.5-5.1)
[2024-03-31 06:14] LABS: SLIDE REVIEW ABNORMAL SMEAR
[2024-03-31] MEDS: oxyCODONE 5 MG Tab PO PRN ×2 (07:40→13:10)
[2024-03-31] MEDS: Citalopram 20 MG Tab PO SCH (08:14)
[2024-03-31] MEDS: Furosemide 40 MG Tab PO SCH (09:12)
[2024-03-31] MEDS: Lisinopril 20 MG Tab PO SCH (09:40)
[2024-03-31] MEDS: Furosemide 40 MG/4 ML VIAL IVPUSH ONE (09:40)
[2024-03-31] MEDS: Insulin Glargine,Human Rec. Analog 100 Units/ML 3 ML Pen SUBCUT SCH (09:42)
[2024-03-31] MEDS: Acetaminophen 325 MG Tab PO PRN (12:07)
[2024-03-31] MEDS: Nicotine 14 MG/24 Hr Patch TRDERM SCH (21:06)
[2024-04-01 05:52] LABS: ANION GAP 10.7 (5-15); CALCIUM 9.8 mg/dL (8.5-10.1); EST CRCL DRUG DOSING (CG) 65.9 mL/min; POTASSIUM,K 3.7 mEq/L (3.5-5.1)
[2024-04-01] MEDS: Tiotropium BR/Olodaterol HCL 4 GM Inhalation Spray 2.5mcg/1 dose; 10 doses INH SCH (09:09)
[2024-04-01] MEDS: Insulin Glargine,Human Rec. Analog 100 Units/ML 3 ML Pen SUBCUT SCH (09:38)
== END 2024-04-01 12:28 | DRG 189 ==
LOC: JD.ED 05:05 → JD.MS 08:55
PROVIDERS: ADMIT Family Medicine; ATTEND Family Medicine
PROC: 4A033R1 Measurement of Arterial Saturation, Peripheral, Percutaneous Approach (ICD-10-PCS; principal; 2024-03-30)
DX: S09.90XA Unspecified injury of head, initial encounter (principal); J96.21 Acute and chronic respiratory failure with hypoxia; R09.02 Hypoxemia; J44.1 Chronic obstructive pulmonary disease with (acute) exacerbation; I10 Essential (primary) hypertension; E11.9 Type 2 diabetes mellitus without complications; I13.0 Hypertensive heart and chronic kidney disease with heart failure and stage 1 through stage 4 chronic kidney disease, or unspecified chronic kidney disease; I25.10 Atherosclerotic heart disease of native coronary artery without angina pectoris; G47.30 Sleep apnea, unspecified; K21.9 Gastro-esophageal reflux disease without esophagitis; Y92.012 Bathroom of single-family (private) house as the place of occurrence of the external cause; N18.2 Chronic kidney disease, stage 2 (mild); E11.22 Type 2 diabetes mellitus with diabetic chronic kidney disease; H54.7 Unspecified visual loss; J44.9 Chronic obstructive pulmonary disease, unspecified; F32.A Depression, unspecified; G89.29 Other chronic pain; F41.9 Anxiety disorder, unspecified; F15.90 Other stimulant use, unspecified, uncomplicated; R53.81 Other malaise; W19.XXXA Unspecified fall, initial encounter; I27.20 Pulmonary hypertension, unspecified; Z99.81 Dependence on supplemental oxygen; Z79.1 Long term (current) use of non-steroidal anti-inflammatories (NSAID); Z95.1 Presence of aortocoronary bypass graft; Z79.51 Long term (current) use of inhaled steroids; Z79.4 Long term (current) use of insulin; Z79.891 Long term (current) use of opiate analgesic; I25.2 Old myocardial infarction; Z87.01 Personal history of pneumonia (recurrent); Z87.81 Personal history of (healed) traumatic fracture; Z90.49 Acquired absence of other specified parts of digestive tract; Z87.891 Personal history of nicotine dependence; S22.32XD Fracture of one rib, left side, subsequent encounter for fracture with routine healing; Z79.84 Long term (current) use of oral hypoglycemic drugs; Z79.899 Other long term (current) drug therapy
CPT/HCPCS: 36415; 36600; 70450; 70450-26; 71101-26-LT; 71101-LT; 72125; 72125-26; 80048; 80053; 81001; 82550; 82803; 82947; 83735; 83880; 84484; 85025; 87428-QW; 87641; 93005; 94640; 94761; 96374; 97110-GP; 97162-GP; 99285-25; A9270-GY; J0692; J1650; J1815; J1815-GY; J1940; J2919; J7620-GY

== ENCOUNTER 2024-04-15 11:52 | Emergency (ER) | payer MEDICARE ==
[2024-04-15 12:43] LABS: BASOPHILS ABSOLUTE AUTO 0.1 K/mm3 (0.0-0.2); BASOPHILS PERCENT AUTO 0.6 % (0.0-1.0); EOSINOPHILS ABSOLUTE AUTO 0.3 K/mm3 (0.0-0.4); EOSINOPHILS PERCENT AUTO 2.6 % (0.0-6.0); HEMATOCRIT 39.8 % (42.0-52.0); HEMOGLOBIN 12.1 gm/dl (14.0-18.0); IMMATURE GRAN ABSOLUTE AUTO 0.05 K/mm3 (0.00-0.05); IMMATURE GRAN PERCENT AUTO 0.5 % (0.0-0.4); LYMPHOCYTES ABSOLUTE AUTO 1.3 K/mm3 (1.0-4.8); LYMPHOCYTES PERCENT AUTO 13.2 % (24.0-44.0); MEAN CORPUSCULAR HEMOGLOBIN 26.7 pg (28.0-32.0); MEAN CORPUSCULAR HGB CONC 30.4 g/dl (32.0-36.0); MEAN CORPUSCULAR VOLUME 87.7 fl (83.0-99.0); MEAN PLATELET VOLUME 10.8 fl (9.4-12.4); MONOCYTES ABSOLUTE AUTO 1.2 K/mm3 (0.0-0.8); NEUTROPHILS ABSOLUTE AUTO 7.1 K/mm3 (1.8-7.7); NEUTROPHILS PERCENT AUTO 71.1 % (41.0-71.0); PLATELET COUNT,PLT 224 K/mm3 (150-400); RED BLOOD CELL COUNT 4.54 M/mm3 (4.52-5.90); WHITE BLOOD CELL COUNT,WBC 9.99 K/mm3 (3.9-11.3)
[2024-04-15 13:03] LABS: A/G RATIO 0.8 (1-2); ALBUMIN 2.9 g/dl (3.4-5.0); ANION GAP 10.6 (5-15); BILIRUBIN TOTAL 0.5 mg/dL (0.2-1.0); C-REACTIVE PROTEIN 5.76 mg/dL (<0.30); CALCIUM 8.9 mg/dL (8.5-10.1); CREATININE 1.4 mg/dL (0.7-1.3); EST CRCL DRUG DOSING (CG) 47.07 mL/min; POTASSIUM,K 3.6 mEq/L (3.5-5.1); PROTEIN TOTAL,TP 6.5 g/dl (6.4-8.2)
[2024-04-15] MEDS: Albuterol/Ipratropium 3.0-0.5 MG/3 ML Neb Soln NEB ONE (13:29)
[2024-04-15 14:05] LABS: APPEARANCE,URINE CLEAR (Clear); BILIRUBIN,URINE NEGATIVE (Negative); COLOR,URINE YELLOW (Yellow); GLUCOSE,URINE 2+ (Negative); KETONES,URINE NEGATIVE (Negative); LEUKOCYTE ESTERASE,URINE NEGATIVE (Negative); NITRITE,URINE NEGATIVE (Negative); OCCULT BLOOD,URINE NEGATIVE (Negative); PH,URINE 5.5 (5.0-8.0); PROTEIN,URINE NEGATIVE (Negative); UROBILINOGEN,URINE 0.2 (0.2-1.0)
[2024-04-15] MEDS ORDERED: cefTRIAXone 2 GM Vial IVPUSH ONE (14:35)
[2024-04-15] MEDS ORDERED: Doxycycline Monohydrate 100 MG Cap PO ONE (14:36)
[2024-04-15] MEDS: cefTRIAXone 2 GM Vial IVPUSH ONE (15:14)
[2024-04-15] MEDS: Doxycycline Monohydrate 100 MG Cap PO ONE (15:14)
[2024-04-15] MEDS: Sodium Chloride 0.9% 10 ML Syringe FLUSH PRN (15:15)
== END 2024-04-15 15:33 ==
LOC: JD.ED 11:52
DX: I50.9 Heart failure, unspecified (principal); J96.11 Chronic respiratory failure with hypoxia; J43.9 Emphysema, unspecified; J18.9 Pneumonia, unspecified organism; I10 Essential (primary) hypertension; I25.2 Old myocardial infarction; E11.9 Type 2 diabetes mellitus without complications; Z79.4 Long term (current) use of insulin; Z79.899 Other long term (current) drug therapy; Z90.49 Acquired absence of other specified parts of digestive tract
CPT/HCPCS: 36415; 71046; 80053; 81003; 83880; 84484; 85025; 86140; 87428; 93005; 94640; 96374; 99285; A9270; J0696; 93010; J7620-GY

== ENCOUNTER 2024-10-26 07:49 | Emergency (ER) | payer MEDICARE, MEDICAID ==
[2024-10-26 08:21] LABS: BASOPHILS ABSOLUTE AUTO 0.1 K/mm3 (0.0-0.2); BASOPHILS PERCENT AUTO 0.3 % (0.0-1.0); EOSINOPHILS ABSOLUTE AUTO 0.0 K/mm3 (0.0-0.4); EOSINOPHILS PERCENT AUTO 0.0 % (0.0-6.0); IMMATURE GRAN ABSOLUTE AUTO 0.20 K/mm3 (0.00-0.05); IMMATURE GRAN PERCENT AUTO 0.7 % (0.0-0.4); LYMPHOCYTES ABSOLUTE AUTO 0.8 K/mm3 (1.0-4.8); LYMPHOCYTES PERCENT AUTO 2.6 % (24.0-44.0); MEAN PLATELET VOLUME 11.2 fl (9.4-12.4); MONOCYTES ABSOLUTE AUTO 2.0 K/mm3 (0.0-0.8); MONOCYTES PERCENT AUTO 6.7 % (0.0-8.0); NEUTROPHILS ABSOLUTE AUTO 26.5 K/mm3 (1.8-7.7); NEUTROPHILS PERCENT AUTO 89.7 % (41.0-71.0); NRBC ABSOLUTE 0.00 (0.00-0.02); NRBC PERCENT 0.0 % (0.0-0.2); PLATELET COUNT,PLT 231 K/mm3 (150-400); RED BLOOD CELL COUNT 5.70 M/mm3 (4.52-5.90); WHITE BLOOD CELL COUNT,WBC 29.51 K/mm3 (3.9-11.3)
[2024-10-26 08:35] LABS: A/G RATIO 1.1 (1-2); ALANINE AMINOTRANSFERASE,ALT 17.0 U/L (16-63); ASPARTATE AMNIOTRANSFERASE,AST 10.0 U/L (15-37); BILIRUBIN TOTAL 0.7 mg/dL (0.2-1.0); BLOOD UREA NITROGEN,BUN 22.0 mg/dL (7-18); CARBON DIOXIDE,CO2 28.0 mEq/L (21-32); CHLORIDE,CL 104.0 mEq/L (98-107); CREATININE 1.4 mg/dL (0.7-1.3); EST CRCL DRUG DOSING (CG) 44.11 mL/min; ESTIMATED GFR 52.0 mL/min (>60); GLUCOSE RANDOM 168.0 mg/dL (70-99); POTASSIUM,K 4.1 mEq/L (3.5-5.1); PROTEIN TOTAL,TP 7.1 g/dl (6.4-8.2); SODIUM,NA 142.0 mEq/L (136-145); TROPONIN I HIGH SENSITIVITY 13.0 pg/mL (<=76)
[2024-10-26 11:53] LABS: O2 SATURATION ARTERIAL 96.9 % (96.0-97.0); PCO2 ARTERIAL 43.0 mmHg (35.0-45.0); PO2 ARTERIAL 71.0 mmHg (80.0-100.0)
== END 2024-10-26 11:20 | disposition home or self-care (01) ==
LOC: JD.ED 07:49
DX: J18.9 Pneumonia, unspecified organism (principal); J43.9 Emphysema, unspecified; D72.828 Other elevated white blood cell count; R00.0 Tachycardia, unspecified; I10 Essential (primary) hypertension; I25.2 Old myocardial infarction; J44.9 Chronic obstructive pulmonary disease, unspecified; K21.9 Gastro-esophageal reflux disease without esophagitis; E11.9 Type 2 diabetes mellitus without complications; Z90.49 Acquired absence of other specified parts of digestive tract; Z79.51 Long term (current) use of inhaled steroids; Z79.4 Long term (current) use of insulin; Z79.84 Long term (current) use of oral hypoglycemic drugs; Z79.899 Other long term (current) drug therapy; Z99.81 Dependence on supplemental oxygen
CPT/HCPCS: 36415; 36600; 71045; 80053; 82803; 83735; 83880; 84484; 85025; 93005; 94640; 96365; 96375; 99285; A9270; J0456; J0696; J7030; J7050